=== PATIENT | female | born 2000 | race African-American/Black ===

== ENCOUNTER 2023-12-06 17:10 | Emergency (ER) | payer BC ==
--- OUTSIDE RECORDS SUMMARY | 2023-12-06 17:17 | XMS REPORT | Continuity of Care Document ---
Author Name Unknown Address [address] [facility] [place] [address] [facility] thconnect Address [address] [facility] [place] [address] Care Team Providers Care Vessel Traffic Officer Name Role Phone MAKENZIE BRUCE Primary Care Physician UnavailSTEFANO Light Attending Clinician Unavailable BRYNN BETH Attending Clinician Unavailable LAB47 Attending Clinician Unavailable ALBERT VELA Attending Clinician Unavailable HAMMAD SALGADO Attending Clinician Unavailable [email or web address]_S Attending Clinician Unavaila JUAN JOSE Giles Attending Clinician Unavailable SERGIO RAINEY Attending Clinician Unavailable UNASSIGNED, ED Attending Clinician Unavailable XU CORBETT Attending Clinician UnavailMELIZA Martinez Attending Clinician Unavailable GILDA BALDWIN Attending Clinician Unavailable MAKENZIE BRUCE Attending Clinician Unavailable Gilda Baldwin PA-C Attending Clinician [phone] Doctor Unassigned, [place] Attending Clinician U Rose Hager Attending Clinician [phone] ROSE GIBBS Attending Clin[facility], Eda-m Ultrasound Attending Clinician Unavaldemar bradley Mof Christie HUSTON Attending Clinician [phone] RAMIRO VIVAS Attending Clinician Unavailable [email or web address]_S Admitting Clinician UnavailMELIZA Guzmán Admitting Clinician Unavailable RAMIRO VIVAS Admitting Clinician Unavailable Payers Payer Name Policy Type Policy Number Effective Date Expirati on Date Source [facility] (ERS-BCBS CAPITATED) 9 [id number] 2023 00:00:00 [place] [employer] [place] [id number] [place] [id number] 2019 00:00:00 MANAGED MEDICAID GENERIC NON-CONTRACT [id number] 2020 00:00:00 2020 00:00:00 [facility] MEDICAID [id number] 2020 00:00:00 Problems Condition Name Condition Details Condition Category Status Onset Date Resolution Date Last Treatment Date Treating Clinician Comments Source Class 1 obesity due to excess calories without serious comorbidit y with body mass index (BMI) of 34.0 to 34.9 in adult Class 1 obesity due to excess calories without serious comorbidit y with body mass index (BMI) of 34.0 to 34.9 in adult Disease Active 11-15 00:00: 00 [facility] Cuellarold - Externa l Controlled substance agreement signed Controlled substance agreement signed Disease Active 11-15 00:00: 00 Conchis Cuellarold - Externa l Breast pain in female Breast pain in female Disease Active 10-29 00:00: 00 Con[facility] Cuellarold - Externa l Prediabete s Prediabete s Disease Active 10-29 00:00: 00 Conchis Cuellarold - Externa l Abdominal pain Problem Inactiv [facility] 38 weeks gestation of Problem Active [facility] growth restrictio n Problem Active [facility] Encounter for induction of labor Problem Active [facility] state Problem Active [facility] Allergic reaction Problem Inactiv e [facility] Health Status post vaginal delivery Problem Active [facility] Allergies, Adverse Reactions, Alerts Allergy Name Allergy Type Status Severity Reaction(s) Onset Date Inactive Date Treating Clinician Comments Source No Known Drug Allergie s Allergy to substanc e Active Unknown 2-17 00:00: [address] [facility] No Known Drug Allergie s Allergy to substanc e Active Unknown 1- 00:00: [address] [facility] No known drug Allergie s Miscella neous Allergy Active U Not Specified 07-09 08:28: 12 [facility] No known drug Allergie s Miscella neous Allergy Active U Not Specified 07-09 08:28: 12 [facility]) No known drug Allergie s Miscella neous Allergy Active U Not Specified 07-09 08:28: 12 [facility]) Denies latex allergy Miscella neous Allergy Active U Not Specified 07-09 08:03: 40 [facility]) Denies latex allergy Miscella neous Allergy Active U Not Specified 07-09 08:03: 40 [facility]) Denies latex allergy Miscella neous Allergy Active U Not Specified 07-09 08:03: 40 [facility]) Denies latex allergy Miscella neous Allergy Active U Not Specified 07-09 08:03: 40 [facility]) No Known Allergie s NA Active 07-09 08:02: 15 [facility] NO KNOWN ALLERGIE S Drug Class Active [facility] Social History Social Habit Start Date Stop Date Quantity Comments Source Sexual orientation Royce Lopez - External History of tobacco use [facility] Alcoholic beverage intake 2023-11-16 00:00:00 2023-11-16 00:00:00 Current drinker of alcohol (finding) Conchis Lopez - External History of Social function 2023-11-16 00:00:00 2023-11-16 00:00:00 Conchis Lopez - External Tobacco use and exposure 2023-10-30 00:00:00 2023-10-30 00:00:00 Smokeless tobacco non-user Conchis Lopez - External Alcohol Comment 2023-10-30 00:00:00 2023-10-30 00:00:00 soically Conchis Lopez - External Sex assigned at 2000 00:00:00 2000 00:00:00 Conchis Lopez - External Smoking Status Start Date Stop Date Source Never smoked tobacco Conchis Lopez - External Medications Ordered Medication Name Filled Medication Name Start Date Stop Date Current Medication? Ordering Clinician Indication Dosage Frequency Signature (SIG) Comments Components Source Nitrofurant oin Monohyd Macro 100 MG oral Capsule 11-26 00:00: 00 12-02 04:59 :00 Yes [id number] 100mg Take 1 capsule (100 mg total) by mouth 2 times daily for 5 days. Conchis gamez Sertraline HCl 25 MG oral Tablet 11-15 00:00: 00 Yes [id number] 25mg Take 1 tablet (25 mg total) by mouth daily. Conchis gamez Tirzepatide -Weight Management 2.5 MG/0.5ML subcutaneou s Solution Auto-inject or 11-15 00:00: 00 11-15 00:00 :00 No [id number] 2.5mg Inject 0.5 mL (2.5 mg total) into the skin once a week for 28 days. Conchis gamez Albuterol 90 Mcg/Act Hfa Inh (Proair Hfa Inh) 8.5 Gm HFA.AER.AD 02-16 20:14: 00 No 1 Every [address] [facility] Azithromyci n (Zithromax Z-Blake) 6 Tab/Pkg PKG 02-16 20:14: 00 No [address] [facility] Dexamethaso ne (Decadron) 6 Mg TAB 02-16 20:14: [address] No [address]mg Daily [facility] Ondansetron Hcl (Zofran Odt) 4 Mg TAB.RAPDIS 02-16 20:14: 00 No 4mg Every [address] [facility] Ibuprofen (Motrin) 800 Mg TAB 10-18 16:33: 00 06-19 00:00 :00 No 800mg Every 8 Hours as needed for Mild Pain(1-3)/ Duvall/Elev Temp [facility] Ibuprofen (Motrin) 800 Mg TAB 10-18 16:33: 00 06-19 00:00 :00 No 800mg Every 8 Hours as needed for Mild Pain(1-3)/ Duvall/Elev Temp [facility] Diphenhydra mine Hcl (Benadryl) 25 Mg TAB 2017-06 15:01: 08-31 00:00 :00 No 25mg Three Times A Day [facility] Methylpredn isolone (Medrol Dose-Pack) 21 Tab/Dspk TAB 2017-06 15:01: 08-31 00:00 :00 No [address] [facility] Diphenhydra mine Hcl (Benadryl) 25 Mg TAB 2017-06 15:01: 08-31 00:00 :00 No 25mg Three Times A Day [facility] Methylpredn isolone (Medrol Dose-Pack) 21 Tab/Dspk TAB 2017-06 15:01: 00 08-31 00:00 :00 No [address] [facility] Phenylephr/ Chlorphenir /Dextrometh (Eunice Grajeda) [facility] 2008-06 0 13:45: 00 08-31 00:00 :00 No 1[tsp_u s] Four Times Daily [facility] Phenylephr/ Chlorphenir /Dextrometh (Eunice Kiddq) [facility] 2008-06 13:45: 00 08-31 00:00 :00 No 1[tsp_u s] Four Times Daily [facility] Acetaminoph en/Codeine Phosphate (Tylenol #3) 1 Each TAB No 1 Every 4 Hours as needed for Pain [facility] Docusate Sodium (Colace) 50 Mg CAP No 100mg Twice A Day for Constipati on [facility] Ferrous Sulfate (Feosol) 325 Mg TAB No 325mg Twice A Day [facility] Vit,Calc76/ Iron/Folic (Prenatabs Rx Tablet) 1 Each TABLET No [address] [facility] Ferrous Sulfate (Feosol) 325 Mg TAB No 325mg Twice A Day [facility] Vit,Calc76/ Iron/Folic (Prenatabs Rx Tablet) 1 Each TABLET No [address] [facility] Vital Signs Vital Name Observation Time Observation Value Comments S rhina Systolic blood pressure 2023-11-16 18:55:00 100 mm[Hg] Conchis Seybo ld - External Diastolic blood pressure 2023-11-16 18:55:00 66 mm[Hg] Conchis Seybo ld - External Heart rate 2023-11-16 18:55:00 73 /min Kelse y Seybold - External Body temperature 2023-11-16 18:55:00 37.06 Darling Conchis Seybold - External Respiratory rate 2023-11-16 18:55:00 16 /min Conchis Seybold - External Body height 2023-11-16 18:55:00 157.5 cm Belkis ey Seybold - External Body weight 2023-11-16 18:55:00 86.637 kg Belkis ey Seybold - External BMI 2023-11-16 18:55:00 34.93 kg/m2 Belkis ey Seybold - External Oxygen saturation in Arterial blood by Pulse oximetry 2023-11-16 18:55:00 100 /min Conchis Seybo ld - External Systolic blood pressure 2023-10-30 19:13:00 102 mm[Hg] Conchis Seybo ld - External Diastolic blood pressure 2023-10-30 19:13:00 71 mm[Hg] Conchis Seybo ld - External Heart rate 2023-10-30 19:13:00 92 /min Reynoldse y Seybold - External Body temperature 2023-10-30 19:13:00 37.22 Darling Conchis Daiybold - External Respiratory rate 2023-10-30 19:13:00 18 /min Conchis Daiybold - External Body height 2023-10-30 19:13:00 157.5 cm Belkis ey Seybold - External Body weight 2023-10-30 19:13:00 84.823 kg Belkis ey Seybold - External BMI 2023-10-30 19:13:00 34.20 kg/m2 Belkis ey Seybold - External Oxygen saturation in Arterial blood by Pulse oximetry 2023-10-30 19:13:00 99 /min Conchis Daiybo ld - External BP Diastolic 2021-03-27 04:49:00 74 mm[Hg] [facility] BP Systolic 2021-03-27 04:49:00 124 mm[Hg] [facility] Heart Rate 2021-03-27 04:49:00 101 /min [facility] Respiratory rate 2021-03-27 04:49:00 20 /min [facility] Body Temperature 2021-03-27 04:49:00 98.8 [degF] [facility] BP Diastolic 2021-03-27 00:54:00 74 mm[Hg] [facility] BP Systolic 2021-03-27 00:54:00 124 mm[Hg] [facility] Heart Rate 2021-03-27 00:54:00 101 /min [facility] Respiratory rate 2021-03-27 00:54:00 20 /min [facility] Body Temperature 2021-03-27 00:54:00 98.8 [degF] [facility] BP Diastolic 2021-03-27 00:37:00 74 mm[Hg] [facility] BP Systolic 2021-03-27 00:37:00 124 mm[Hg] [facility] 2021-03-27 00:37:00 101 /min [facility] Respiratory rate 2021-03-27 00:37:00 20 /min [facility] Body Temperature 2021-03-27 00:37:00 98.8 [degF] [facility] BP Diastolic 2021-02-16 20:31:00 60 mm[Hg] [facility] BP Systolic 2021-02-16 20:31:00 114 mm[Hg] [facility] Heart [facility] 2021-02-16 20:31:00 122 /min [facility] Health Respiratory rate 2021-02-16 20:31:00 24 /min [facility] Body Temperature 2021-02-16 20:31:00 102.0 [degF] [facility] BP Diastolic 2021-02-16 19:38:00 60 mm[Hg] [facility] BP Systolic 2021-02-16 19:38:00 114 mm[Hg] [facility] Heart [facility] 2021-02-16 19:38:00 122 /min [facility] Respiratory rate 2021-02-16 19:38:00 24 /min [facility] Body Temperature 2021-02-16 19:38:00 102.0 [degF] [facility] BP Diastolic 2020-08-07 15:07:00 82 mm[Hg] [facility] BP Systolic 2020-08-07 15:07:00 117 mm[Hg] [facility] Heart Rate 2020-08-07 15:07:00 83 /min [facility] Respiratory rate 2020-08-07 15:07:00 16 /min [facility] Body Temperature 2020-08-07 15:07:00 98.6 [degF] [facility] BP Diastolic 2020-08-07 08:12:00 77 mm[Hg] [facility] BP Systolic 2020-08-07 08:12:00 120 mm[Hg] [facility] 2020-08-07 08:12:00 71 /min [facility] Respiratory rate 2020-08-07 08:12:00 16 /min [facility] Body Temperature 2020-08-07 08:12:00 97.3 [degF] [facility] BP Diastolic 2020-08-07 04:00:00 88 mm[Hg] [facility] BP Systolic 2020-08-07 04:00:00 142 mm[Hg] [facility] Heart [facility] 2020-08-07 04:00:00 78 /min [facility] Respiratory rate 2020-08-07 04:00:00 16 /min [facility] Body Temperature 2020-08-07 04:00:00 97.8 [degF] [facility] BP Diastolic 2020-08-07 00:23:00 84 mm[Hg] [facility] BP Systolic 2020-08-07 00:23:00 135 mm[Hg] [facility] Heart [facility] 2020-08-07 00:23:00 64 /min [facility] Respiratory rate 2020-08-07 00:23:00 16 /min [facility] Body Temperature 2020-08-07 00:23:00 97.9 [degF] [facility] BP Diastolic 2020-08-06 19:45:00 84 mm[Hg] [facility] BP Systolic 2020-08-06 19:45:00 127 mm[Hg] [facility] Heart [facility] 2020-08-06 19:45:00 83 /min [facility] Respiratory rate 2020-08-06 19:45:00 16 /min [facility] Body Temperature 2020-08-06 19:45:00 98.2 [degF] [facility] BP Diastolic 2020-08-06 12:00:00 76 mm[Hg] [facility] BP Systolic 2020-08-06 12:00:00 113 mm[Hg] [facility] Heart Rate 2020-08-06 12:00:00 89 /min [facility] Respiratory rate 2020-08-06 12:00:00 18 /min [facility] Body Temperature 2020-08-06 12:00:00 98.6 [degF] [facility] BP Diastolic 2020-08-06 08:00:00 73 mm[Hg] [facility] BP Systolic 2020-08-06 08:00:00 116 mm[Hg] [facility] 2020-08-06 08:00:00 85 /min [facility] Respiratory rate 2020-08-06 08:00:00 18 /min [facility] Body Temperature 2020-08-06 08:00:00 98.4 [degF] [facility] BP Diastolic 2020-08-06 03:20:00 69 mm[Hg] [facility] BP Systolic 2020-08-06 03:20:00 110 mm[Hg] [facility] Heart [facility] 2020-08-06 03:20:00 89 /min [facility] Respiratory rate 2020-08-06 03:20:00 20 /min [facility] Body Temperature 2020-08-06 03:20:00 100.0 [degF] [facility] Body Temperature 2020-08-06 01:08:00 102.2 [degF] [facility] Body Temperature 2020-08-05 23:15:00 98.7 [degF] [facility] BP Diastolic 2020-08-05 23:00:00 80 mm[Hg] [facility] BP Systolic 2020-08-05 23:00:00 143 mm[Hg] [facility] Heart [facility] 2020-08-05 23:00:00 90 /min [facility] Respiratory rate 2020-08-05 23:00:00 20 /min [facility] Body Temperature 2020-08-05 21:45:00 97.8 [degF] [facility] Respiratory rate 2020-08-05 21:30:00 18 /min [facility] BP Diastolic 2020-08-05 19:10:00 68 mm[Hg] [facility] BP Systolic 2020-08-05 19:10:00 122 mm[Hg] [facility] Heart Rate 2020-08-05 19:10:00 90 /min [facility] Respiratory rate 2020-08-05 19:10:00 20 /min [facility] Body Temperature 2020-08-05 19:10:00 98.1 [degF] [facility] BP Diastolic 2020-08-05 17:54:00 73 mm[Hg] [facility] BP Systolic 2020-08-05 17:54:00 126 mm[Hg] [facility] Heart Rate 2020-08-05 17:54:00 90 /min [facility] Respiratory rate 2020-08-05 17:54:00 20 /min [facility] Body Temperature 2020-08-05 17:54:00 98.7 [degF] [facility] BP Diastolic 2020-08-05 12:05:00 61 mm[Hg] [facility] BP Systolic 2020-08-05 12:05:00 117 mm[Hg] [facility] 2020-08-05 12:05:00 87 /min [facility] Respiratory rate 2020-08-05 12:05:00 20 /min [facility] Body Temperature 2020-08-05 12:05:00 98.6 [degF] [facility] BP Diastolic 2020-07-12 21:33:00 62 mm[Hg] [facility] BP Systolic 2020-07-12 21:33:00 129 mm[Hg] [facility] Heart [facility] 2020-07-12 21:33:00 89 /min [facility] Respiratory rate 2020-07-12 21:33:00 18 /min [facility] Body Temperature 2020-07-12 21:33:00 98.9 [degF] [facility] BP Diastolic 2020-06-19 18:00:00 59 mm[Hg] [facility] BP Systolic 2020-06-19 18:00:00 108 mm[Hg] [facility] Heart Rate 2020-06-19 18:00:00 94 /min [facility] Respiratory rate 2020-06-19 18:00:00 20 /min [facility] Body Temperature 2020-06-19 18:00:00 98.1 [degF] [facility] Procedures Procedure Date / Time Performed Performing Clinicia n Source X-ray of chest, two views 2021-03-27 00:00:00 [facility] Ultrasound, abdomen, limited 2021-03-27 00:00:00 [facility] non-stress test 2020-08-05 00:00:00 [facility] NON-STRESS TEST 2020-07-12 00:00:00 [facility] OFFICE O/P EST LOW 20-29 MIN 2020-07-12 00:00:00 [facility] non-stress test 2020-07-12 00:00:00 [facility] outpt clinic visit 2020-07-12 00:00:00 [facility] non-stress test 2020-06-19 00:00:00 [facility] outpt clinic visit 2020-06-19 00:00:00 [facility] Ther/proph/diag inj SC/IM 2020-06-19 00:00:00 [facility] Encounters Start Date/Time End Date/Time Encounter Type Admission Type Attending Clinicians Care Facility Care Department Encounter ID Source 2023-12-18 10:00:00 2023-12-18 10:00:00 Outpatient STEFANO HECTOR [id number] [facility] 2023-12-14 14:00:00 2023-12-14 14:00:00 Outpatient BRYNN BETH [id number] [facility] 2023-11-28 08:20:00 2023-11-28 08:20:00 Outpatient LAB47 CONCHIS CARTER [id number] [facility] 2023-11-27 13:30:00 2023-11-27 13:30:00 Outpatient ALBERT VELA [id number] [facility] 2023-11-26 13:30:00 2023-11-26 13:30:00 Outpatient LAB47 CONCHIS CARTER [id number] [facility] 2023-11-16 14:45:00 2023-11-16 14:45:00 Outpatient LAB47 CONCHIS CARTER [id number] [facility] 2023-11-16 14:00:00 2023-11-16 14:00:00 Outpatient BRYNN BETH [id number] [facility] 2023-11-16 00:00:00 2023-11-16 00:00:00 Outpatient HAMMAD SALGADO [id number] [facility] 2023-11-13 10:50:00 2023-11-13 10:50:00 Outpatient LABJovita CARTER [id number] [facility] 2023-10-30 13:45:00 2023-10-30 13:45:00 Outpatient HAMMAD SALGADO [id number] [facility] 2023-09-17 00:00:00 2023-09-17 00:00:00 Outpatient GC_GCBZW_Ka diyala_S [facility] [id number] [facility] 2022-09-25 15:42:00 2022-09-25 16:00:00 Emergency ER JUAN JOSE [facility] [id number] [facility] 2022-05-27 08:04:00 2022-05-27 09:17:00 Emergency ER REDDSERGIO [id number] [facility] 2022-05-27 08:04:00 2022-05-27 09:17:00 Emergency ER SERGIO RAINEY [facility] [id number] [facility] 2021-03-27 00:38:00 2021-03-27 00:38:00 Departed Emergency Room ER UNASSIGNED, ED CIRA DENIS [id number] [facility] 2021-02-16 19:32:00 2021-02-16 20:31:00 Departed Emergency Room XU CORBETT [id number] [facility] 2020-08-05 12:14:00 2020-08-07 17:29:00 Discharged Inpatient MELIZA MALIK OB [id number] [facility] 2020-07-19 15:00:00 2020-07-19 15:00:00 Outpatient GILDA MALAVE [facility] [id number] [facility] 2020-07-12 21:11:00 2020-07-12 21:11:00 Departed Clinic MAKENZIE VALLES [id number] [facility] 2020-07-09 00:00:00 2020-07-09 00:00:00 Telephone Denny Gilda [facility] MATERNAL & CHILD [facility] .[id number] 2020-07-08 09:00:00 2020-07-08 09:00:00 Outpatient GILDA MALAVE [facility] [id number] [facility] 2020-06-28 11:00:00 2020-06-28 11:00:00 Outpatient GILDA MALAVE [facility] [id number] [facility] 2020-06-19 17:57:00 2020-06-19 17:57:00 Departed Clinic MAKENZIE VALLES [id number] [facility] 2020-06-04 00:00:00 2020-06-04 00:00:00 Orders Only Doctor Unassigned, [place] [facility] [id number] 2020-06-03 15:06:45 2020-06-03 17:12:56 Routine Visit Rose Gibbs [facility] MATERNAL & CHILD [facility] 1..840.114 [id number] [id number] 2020-06-03 15:15:00 2020-06-03 15:15:00 Outpatient ROSE EM [facility] [id number] [facility] 2020-06-01 10:45:00 2020-06-01 10:45:00 Outpatient Juan R BALDWIN GILDA [facility] [id number] [facility] 2020-05-27 09:41:45 2020-05-27 10:41:45 [facility] Visit 1, Eda-Mfm Ultrasound [facility] & CHILD [facility] [id number] 2020-05-27 09:45:00 2020-05-27 09:45:00 Outpatient P [facility] [id number] [facility] 2020-05-27 00:00:00 2020-05-27 00:00:00 Case Management Denny Gilda [facility] [id number] 2020-05-18 10:25:57 2020-05-18 12:30:49 Routine Visit Christie Farrar [facility] [id number] 2020-05-18 10:30:00 2020-05-18 10:30:00 Outpatient GILDA MALAVE [facility] [id number] [facility] 2020-04-30 14:00:00 2020-04-30 14:00:00 Outpatient R [facility] [id number] [facility] 2019-07-09 08:01:00 2019-07-09 08:01:00 Emergency RAMIRO VIVAS PANCHO DICKENS [id number] [facility] Results Test Description Test Time Test Comments Results Result Co mments Source [facility] automated count (number/volume)2021-03-27 01:10:00* Test Item Value Reference Range Interpretation Comme nts Red Blood Count (test code = 789-8) 4.30 3.8-5.1 [facility] (mass/volume)2021-03-27 01:10:00* Test Item Value Reference Range Interpretation Comme nts Hemoglobin (test code = 718-7) 10.6 12.0-15.2 [facility] hematocrit (volume fraction)2021-03-27 01:10:00* Test Item Value Reference Range Interpretation Comme nts Hematocrit (test code = 4544-3) 35.3 34.0-45.5 [facility] erythrocyte mean corpuscular volume (MCV) measurement 2021-03-27 01:10:00* Test Item Value Reference Range Interpretation Comme nts Mean Corpuscular Volume (scott t code = 787-2) 82 80-94 [facility] mean corpuscular hemoglobin (mass per erythrocyte)2021-03-27 01:10:00* Test Item Value Reference Range Interpretation Comme nts Mean Corpuscular Hemoglobin (test code = 785-6) 24.7 27.0-33.0 [facility] mean corpuscular hemoglobin concentration measurement (mass/volume)2021-03-27 01:10:00* Test Item Value Reference Range Interpretation Comme nts Mean Corpuscular Hemoglobin Concent (test code = 786-4) 30.0 33.0-37.0 [facility] erythrocyte distribution width [id number] 01:10:00 * Test Item Value Reference Range Interpretation Comme nts Red Cell Distribution Width (test code = 788-0) 15.9 10.7-14.5 [facility] platelet count (count/volume)2021-03-27 01:10:00 * Test Item Value Reference Range Interpretation Comme nts Platelet Count (test code = 777-3) 386 150-450 [facility] platelet mean volume [id number] 01:10:00* Test Item Value Reference Range Interpretation Comme nts Mean Platelet Volume (test c ode = 37631-4) 9.7 5.7-10.7 [facility] HealthAutomated blood neutrophil count as percentage of total ldbuhipvqf4320-50-69 01:10:00* Test Item Value Reference Range Interpretation Comme nts Neutrophils (%) (Auto) (test code = 770-8) 62 47-75 [facility] HealthAutomated blood immature granulocyte count as percentage of total uvwgjysmep5586-30-69 01:10:00* Test Item Value Reference Range Interpretation Comme nts Immature Granulocyte % (Auto ) (test code = 29523-2) 0 0-0 [facility] HealthAutomated blood lymphocyte count as percentage of total imlydfbnbk7028-67-76 01:10:00* Test Item Value Reference Range Interpretation Comme nts Lymphocytes (%) (Auto) (test code = 736-9) 30 25-44 [facility] HealthAutomated blood monocyte count as percentage of total leukocytes 2021-03-27 01:10:00* Test Item Value Reference Range Interpretation Comme nts Monocytes (%) (Auto) (test c ode = 5905-5) 6 3-10 [facility] HealthAutomated blood eosinophil count as percentage of total mqsprbkljw5073-06-64 01:10:00* Test Item Value Reference Range Interpretation Comme nts Eosinophils (%) (Auto) (test code = 713-8) 2 0-7 [facility] HealthAutomated blood basophil count as percentage of total leukocytes 2021-03-27 01:10:00* Test Item Value Reference Range Interpretation Comme nts Basophils (%) (Auto) (test c ode = 706-2) 0 0-1 [facility] HealthAutomated blood nucleated erythrocyte count as percentage of total xntgkrplyx8038-42-94 01:10:00* Test Item Value Reference Range Interpretation Comme nts Nucleated Red Blood Cells % (test code = 35334-0) 0.0 0-0.2 [facility] HealthAutomated blood neutrophil count (number/volume)2021-03-27 01:10:00* Test Item Value Reference Range Interpretation Comme nts Neutrophils # (Auto) (test c ode = 751-8) 6.2 1.3-6.7 [facility] HealthAutomated blood immature granulocyte count as percentage of total vjdsazxeuu9520-18-74 01:10:00* Test Item Value Reference Range Interpretation Comme nts Immature Granulocyte # (Auto ) (test code = 24659-9) 0.0 0.0-0.0 [facility] HealthAutomated blood lymphocyte count (number/volume)2021-03-27 01:10:00* Test Item Value Reference Range Interpretation Comme nts Lymphocytes # (Auto) (test c ode = 731-0) 3.0 1.4-4.1 [facility] HealthBlood monocytes automated count (number/volume)2021-03-27 01:10:00* Test Item Value Reference Range Interpretation Comme nts Monocytes # (Auto) (test code = 742-7) 0.6 0-1.3 [facility] HealthAutomated blood eosinophil myiko3591-87-42 01:10:00* Test Item Value Reference Range Interpretation Comme nts Eosinophils # (Auto) (test c ode = 711-2) 0.2 0-0.8 [facility] HealthAutomated blood basophil count (number/volume)2021-03-27 01:10:00 * Test Item Value Reference Range Interpretation Comme nts Basophils # (Auto) (test code = 704-7) 0.0 0-0.1 [facility] HealthAutomated blood nucleated erythrocyte count (count/volume) 2021-03-27 01:10:00* Test Item Value Reference Range Interpretation Comme nts Nucleated Red Blood Cells # (test code = 771-6) 0.00 0-0.01 [facility] comment [id number] 01:10:00* Test Item Value Reference Range Interpretation Comme nts Manual Differential (test co de = 8265-1) Not Ind [facility] HealthSodium UdkVe-fRyo5439-48-10 01:10:00* Test Item Value Reference Range Interpretation Comme nts Sodium Level (test code = 2951-2) 139 136-145 [facility] HealthSerum or plasma potassium measurement (moles/volume)2021-03-27 01:10:00* Test Item Value Reference Range Interpretation Comme nts Potassium Level (test code = 2823-3) 3.9 3.5-5.1 [facility] HealthSerum or plasma chloride measurement (moles/volume)2021-03-27 01:10:00* Test Item Value Reference Range Interpretation Comme nts Chloride Level (test code = 2075-0) 105 98-107 [facility] HealthSerum or plasma total carbon dioxide measurement (moles/volume) 2021-03-27 01:10:00* Test Item Value Reference Range Interpretation Comme nts Carbon Dioxide Level (test c ode = 2028-02) 24 22-29 [facility] HealthSerum or plasma anion gap determination (moles/volume)2021-03-27 01:10:00* Test Item Value Reference Range Interpretation Comme nts Anion Gap (test code = 89834-8) 14 8-18 [facility] HealthSerum or plasma urea nitrogen measurement (mass/volume)2021-03-27 01:10:00* Test Item Value Reference Range Interpretation Comme nts Blood Urea Nitrogen (test co de = 3094-0) 13 7-19 [facility] HealthSerum or plasma creatinine measurement (mass/volume)2021-03-27 01:10:00* Test Item Value Reference Range Interpretation Comme nts Creatinine (test code = 2160-0) 0.7 0.6-1.1 [facility] HealthGFR/BSA.pred SerPl QJGV-HvTGko0846-08-10 01:10:00* Test Item Value Reference Range Interpretation Comme nts Estimat Glomerular Filtratio n Rate (test code = 67265-9) 111 90-142 [facility] HealthSerum or plasma glucose measurement (mass/volume)2021-03-27 01:10:00* Test Item Value Reference Range Interpretation Comme nts Glucose Level (test code = 2345-7) 106 60-100 [facility] HealthSerum or plasma calcium measurement (mass/volume)2021-03-27 01:10:00* Test Item Value Reference Range Interpretation Comme nts Calcium Level (test code = 53755-2) 10.2 8.4-10.2 [facility] HealthSerum or plasma total bilirubin measurement (mass/volume) 2021-03-27 01:10:00* Test Item Value Reference Range Interpretation Comme nts Total Bilirubin (test code = 1975-2) 0.2 0.2-1.2 [facility] HealthSerum or plasma aspartate aminotransferase measurement (enzymatic activity/volume)2021-03-27 01:10:00* Test Item Value Reference Range Interpretation Comme nts Aspartate Amino Transf (AST/ SGOT) (test code = 1920-8) 13 5-34 [facility] HealthSerum or plasma alanine aminotransferase measurement (enzymatic activity/volume)2021-03-27 01:10:00* Test Item Value Reference Range Interpretation Comme nts Alanine Aminotransferase (AL T/SGPT) (test code = 1742-6) 11 0-55 [facility] HealthSerum or plasma protein measurement (mass/volume)2021-03-27 01:10:00* Test Item Value Reference Range Interpretation Comme nts Total Protein (test code = 2885-2) 7.6 6.4-8.3 [facility] HealthSerum or plasma albumin measurement (mass/volume)2021-03-27 01:10:00* Test Item Value Reference Range Interpretation Comme nts Albumin (test code = 1751-7) 4.0 3.5-5.0 [facility] HealthSerum or plasma alkaline phosphatase measurement (enzymatic activity/volume)2021-03-27 01:10:00* Test Item Value Reference Range Interpretation Comme [facility] Alkaline Phosphatase (test c ode = 6768-6) 91 40-150 [facility] HealthSerum or plasma lipase measurement (enzymatic activity/volume) 2021-03-27 01:10:00* Test Item Value Reference Range Interpretation Comme nts Lipase (test code = 3040-3) 22 8-78 [facility] HealthSerum or plasma beta choriogonadotropin ( test) oeflabwju2097-08-05 01:10:00* Test Item Value Reference Range Interpretation Comme [facility] Serum Test, Qualit ative (test code = 2110-5) Negative Negative [facility] HealthAutomated blood leukocyte count (number/volume)2020-08-07 06:11:00* Test Item Value Reference Range Interpretation Comme [facility] White Blood Count (test code = 6690-2) 9.0 4.5-11.5 [facility] count (number/volume)2020-08-07 06:11:00* Test Item Value Reference Range Interpretation Comme nts Red Blood Count (test code = 789-8) 4.64 3.8-5.1 [facility] HealthBlood hemoglobin measurement (mass/volume)2020-08-07 06:11:00* Test Item Value Reference Range Interpretation Comme [facility] Hemoglobin (test code = 718-7) 11.5 12.0-15.2 [facility] HealthAutomated blood hematocrit (volume fraction)2020-08-07 06:11:00* Test Item Value Reference Range Interpretation Comme nts Hematocrit (test code = 4544-3) 36.8 34.0-45.5 [facility]Automated erythrocyte mean corpuscular volume (MCV) measurement 2020-08-07 06:11:00* Test Item Value Reference Range Interpretation Comme nts Mean Corpuscular Volume (scott t code = 787-2) 79 80-94 [facility]Automated erythrocyte mean corpuscular hemoglobin (mass per erythrocyte)2020-08-07 06:11:00* Test Item Value Reference Range Interpretation Comme nts Mean Corpuscular Hemoglobin (test code = 785-6) 24.8 27.0-33.0 [facility]Automated erythrocyte mean corpuscular hemoglobin concentration measurement (mass/volume)2020-08-07 06:11:00* Test Item Value Reference Range Interpretation Comme nts Mean Corpuscular Hemoglobin Concent (test code = 786-4) 31.3 33.0-37.0 [facility] HealthAutomated erythrocyte distribution width evbbo3165-90-85 06:11:00 * Test Item Value Reference Range Interpretation Comme nts Red Cell Distribution Width (test code = 788-0) 15.8 10.7-14.5 [facility]Automated blood platelet count (count/volume)2020-08-07 06:11:00 * Test Item Value Reference Range Interpretation Comme nts Platelet Count (test code = 777-3) 174 150-450 [facility]Automated blood platelet mean volume mgnkjrmeoaw4116-91-98 06:11:00* Test Item Value Reference Range Interpretation Comme nts Mean Platelet Volume (test c ode = 61294-4) 9.7 5.7-10.7 [facility]Automated blood neutrophil count as percentage of total sxslewgdvw0385-87-78 06:11:00* Test Item Value Reference Range Interpretation Comme nts Neutrophils (%) (Auto) (test code = 770-8) 64 47-75 [facility]Automated blood immature granulocyte count as percentage of total suntuotnfq9743-51-01 06:11:00* Test Item Value Reference Range Interpretation Comme nts Immature Granulocyte % (Auto ) (test code = 31895-9) 1 0-0 [facility]Automated blood lymphocyte count as percentage of total gmnhkawllq3324-90-51 06:11:00* Test Item Value Reference Range Interpretation Comme nts Lymphocytes (%) (Auto) (test code = 736-9) 28 25-44 [facility]Automated blood monocyte count as percentage of total leukocytes 2020-08-07 06:11:00* Test Item Value Reference Range Interpretation Comme nts Monocytes (%) (Auto) (test c ode = 5905-5) 6 3-10 [facility]Automated blood eosinophil count as percentage of total bquwgxnsni8384-64-91 06:11:00* Test Item Value Reference Range Interpretation Comme nts Eosinophils (%) (Auto) (test code = 713-8) 1 0-7 [facility]Automated blood basophil count as percentage of total leukocytes 2020-08-07 06:11:00* Test Item Value Reference Range Interpretation Comme nts Basophils (%) (Auto) (test c ode = 706-2) 0 0-1 [facility]Automated blood nucleated erythrocyte count as percentage of total xlpnohckzs4364-61-43 06:11:00* Test Item Value Reference Range Interpretation Comme nts Nucleated Red Blood Cells % (test code = 00670-2) 0.0 0-0.2 [facility]Automated blood neutrophil count (number/volume)2020-08-07 06:11:00* Test Item Value Reference Range Interpretation Comme nts Neutrophils # (Auto) (test c ode = 751-8) 5.7 1.3-6.7 [facility]Automated blood immature granulocyte count as percentage of total wsoxefktis1146-80-93 06:11:00* Test Item Value Reference Range Interpretation Comme nts Immature Granulocyte # (Auto ) (test code = 45994-8) 0.1 0.0-0.0 [facility]Automated blood lymphocyte count (number/volume)2020-08-07 06:11:00* Test Item Value Reference Range Interpretation Comme nts Lymphocytes # (Auto) (test c ode = 731-0) 2.5 1.4-4.1 [facility] HealthBlood monocytes automated count (number/volume)2020-08-07 06:11:00* Test Item Value Reference Range Interpretation Comme nts Monocytes # (Auto) (test code = 742-7) 0.5 0-1.3 [facility] eosinophil ywusd7621-72-63 06:11:00* Test Item Value Reference Range Interpretation Comme nts Eosinophils # (Auto) (test c ode = 711-2) 0.1 0-0.8 [facility]Autom[facility] basophil count (number/volume)2020-08-07 06:11:00 * Test Item Value Reference Range Interpretation Comme nts Basophils # (Auto) (test code = 704-7) 0.0 0-0.1 [facility] HospitalAutom[facility] blood nucleated erythrocyte count (count/volume) 2020-08-07 06:11:00* Test Item Value Reference Range Interpretation Comme nts Nucleated Red Blood Cells # (test code = 771-6) 0.00 0-0.01 [facility]Service comment [id number] 06:11:00* Test Item Value Reference Range Interpretation Comme nts Manual Differential (test co de = 8265-1) Not Ind [facility] hepatitis B virus surface antigen jtrrcmdqo0513-90-99 12:45:00* Test Item Value Reference Range Interpretation Comme [facility] Hepatitis B Surface Antigen (test code = 5195-3) Negative Negative [facility] reagin antibody detection by EWC8989-59-96 12:45:00* Test Item Value Reference Range Interpretation Comme nts Rapid Plasma Reagin (test co de = 35590-0) Non-Reactive NonReactive [facility] HospitalSpecimen source [id number] 12:45:00* Test Item Value Reference Range Interpretation Comme nts SARS CoV-2 Rapid Source (scott t code = 59135-9) Nasal swab [facility]-CoV+SARS-CoV-2(COVID-19)Ag[Presence]2020-08-04 12:45:00* Test Item Value Reference Range Interpretation Comme nts SARS-CoV-2 Antigen (Rapid) ( test code = 24666-7) Negative Negative [facility] patient employed in a healthcare lctqhli5234-84-25 12:45:00* Test Item Value Reference Range Interpretation Comme nts N/A (test code = 78591-0) Unknown [facility]Patient has symptoms for condition of hdsswhtt7887-23-85 12:45:00 * Test Item Value Reference Range Interpretation Comme nts N/A (test code = 35533-9) Unknown [facility] HealthPt hospitalized bc bwsp7108-14-74 12:45:00* Test Item Value Reference Range Interpretation Comme nts N/A (test code = 82500-4) Unknown [facility] HealthPregnancy ztspev9828-92-58 12:45:00* Test Item Value Reference Range Interpretation Comme nts N/A (test code = 07717-0) [facility] HealthPatient resides in congregate care rfzebpp7292-02-36 12:45:00* Test Item Value Reference Range Interpretation Comme nts N/A (test code = 88051-8) Unknown [facility] HospitalSer rubella virus IgG antibody assay (units/volume)2020-08-04 12:45:00* Test Item Value Reference Range Interpretation Comme nts Rubella IgG Antibody (test c ode = 8014-3) 19.5 [facility] HospitalUrinalysis specimen collection vsholh7949-06-53 18:25:00* Test Item Value Reference Range Interpretation Comme nts Urine Source (test code = 37912-1) URINE [facility] HealthColor of Urine by Edpc7920-60-35 18:25:00* Test Item Value Reference Range Interpretation Comme nts Urine Color (test code = 31754-6) Yellow Yel-Amarilys * [facility] HealthUrine clarity dutfjphvumrls5641-92-35 18:25:00* Test Item Value Reference Range Interpretation Comme nts Urine Appearance (test code = 87483-2) Light Turbid Clear * [facility] HealthUrine pH measurement by automated test vwkaw8466-03-23 18:25:00* Test Item Value Reference Range Interpretation Comme nts Urine pH (test code = 31761-5) 6.5 5.0-8.0 [facility] HealthSpecific gravity of Urine by Automated test gjjyi1689-08-69 18:25:00* Test Item Value Reference Range Interpretation Comme nts Urine Specific [place] (test code = 76107-3) 1.026 1.005-1.030 [facility] HealthUrine protein measurement by automated test strip (mass/volume) 2020-06-19 18:25:00* Test Item Value Reference Range Interpretation Comme nts Urine Protein (test code = 46427-5) 20 Negative * [facility] HealthUrine glucose measurement by automated test strip (mass/volume) 2020-06-19 18:25:00* Test Item Value Reference Range Interpretation Comme nts Urine Glucose (UA) (test cod e = 00615-8) Negative Negative * [facility] HealthUrine ketones measurement by automated test strip (mass/volume) 2020-06-19 18:25:00* Test Item Value Reference Range Interpretation Comme nts Urine Ketones (test code = 34483-5) Negative Negative * [facility] HealthUrine erythrocytes count by automated test strip (number/volume) 2020-06-19 18:25:00* Test Item Value Reference Range Interpretation Comme nts Urine Occult Blood (test cod e = 43930-2) Negative Negative * [facility] HealthUrine nitrite detection by automated test fcrre8637-55-20 18:25:00* Test Item Value Reference Range Interpretation Comme nts Urine Nitrite (test code = 67968-2) Negative Negative [facility] HealthUrine total bilirubin measurement by automated test strip (mass/volume)2020-06-19 18:25:00* Test Item Value Reference Range Interpretation Comme nts Urine Bilirubin (test code = 15088-4) Negative Negative [facility] HealthUrine urobilinogen measurement by automated test strip (mass/volume)2020-06-19 18:25:00* Test Item Value Reference Range Interpretation Comme nts Urine Urobilinogen (test cod e = 13291-0) Negative 0.0-1.0 [facility] HealthUrine leukocytes count by automated test strip (number/volume) 2020-06-19 18:25:00* Test Item Value Reference Range Interpretation Comme nts Urine Leukocyte Esterase (te st code = 35242-4) Negative Negative [facility] HealthUrine sediment erythrocyte count by microscopy (number/high power field)2020-06-19 18:25:00* Test Item Value Reference Range Interpretation Comme nts Urine RBC (test code = 72614-7) 3-10 0-2 [facility] HealthUrine sediment leukocyte count by microscopy (number/high power field)2020-06-19 18:25:00* Test Item Value Reference Range Interpretation Comme nts Urine WBC (test code = 5821-4) 21-40 0-5 [facility] HealthUrine sediment epithelial cell count by microscopy (number/high power field)2020-06-19 18:25:00* Test Item Value Reference Range Interpretation Comme nts Urine Epithelial Cells (test code = 5787-7) None Seen Few [facility] HealthUrine sediment crystal count by microscopy (number/high power field)2020-06-19 18:25:00* Test Item Value Reference Range Interpretation Comme nts Urine Crystals (test code = 96388-6) None Seen None * [facility] HealthUrine sediment bacteria count by microscopy (number/high power field)2020-06-19 18:25:00* Test Item Value Reference Range Interpretation Comme nts Urine Bacteria (test code = 5769-5) Packed None [facility] HealthUrine sediment casts count by microscopy (number/low power field) 2020-06-19 18:25:00* Test Item Value Reference Range Interpretation Comme nts Urine Casts (test code = 9842-6) Present None * [facility] HealthUrine sediment hyaline cast count by microscopy (number/low power field)2020-06-19 18:25:00* Test Item Value Reference Range Interpretation Comme nts Urine Hyaline Casts (test co de = 5796-8) >20 0-1 [facility] HealthYeast detection in urine sediment by light urfqpbmflj9877-10-68 18:25:00* Test Item Value Reference Range Interpretation Comme nts Urine Yeast (test code = 21056-3) None Seen None [facility] HealthService comment 18:25:00* Test Item Value Reference Range Interpretation Comme nts Urinalysis Comment (test code = 8262-8) * See_Comment [Automated messa ge] The system which generated this result transmitted reference range: *. The reference range was not used to interpret this result as normal/abnormal. [facility] comment 18:25:00* Test Item Value Reference Range Interpretation Comme nts Urine Culture Indicated (scott t code = 8264-4) To follow [facility] SCREEN FOR HIV 13:48:00* Test Item Value Reference Range Interpretation Comme nts HIV 1/2 AB (test code = SCRN HIV) NEGATIVE NEGATIVE This test is us ed for SCREENING purposes only. All reactive results are prelimenary and confirmation results will follow. [id number] 10:04:00* Test Item Value Reference Range Interpretation Comme nts GLUCOSE (test code = URGLU) NEGATIVE MG/DL NEG-100 BILIRUBN (test code = URBILI) NEGATIVE NEGATIVE KETONE (test code = URKET) NEGATIVE MG/DL NEGATIVE BLOOD (test code = URBLD) MODERATE UR PH (test code = URPH) 5.5 5.0-7.5 PROTEIN (test code = URPRO) NEGATIVE MG/DL NEGATIVE NITRITES (test code = URNIT) NEGATIVE NEGATIVE UROBILINGEN (test code = URURO) 0.2 EU/DL 0.2-1.0 LEUKOCYT (test code = URLEU) NEGATIVE NEGATIVE UA COLOR (test code = UA COLOR) YELLOW YELLOW CLARITY (test code = CLARITY) CLEAR CLEAR SP GRAV (test code = URSPGRAV) 1.019 1.000-1.025 UAMICRO (test code = UAMICRO) YES WBC (test code = URWBC) 3 /HPF 0-5 RBC (test code = URRBC) 9 /HPF 0-2 H CASTS (test code = CAST) 2 /LPF 0-3 UR EPI (test code = EPI) 22 /LPF BACTERIA (test code = BACTERIA) NEGATIVE NONE B-HCG, [id number] 09:53:00* Test Item Value Reference Range Interpretation Comme nts HCG (test code = HCG) 7 MIU/ML A value of less than or equal to </= 4.83 mIU/ml is considered NEGATIVE. A value between 4.84 mIU/ml and 24.99 mIU/ml is considered INDETERMINATE and should be repeated in 48 hours if necessary. A value of 25.0 mIU/ml or greater is considered POSITIVE. Updated: 10/23/2009 ABO/[id number] 09:47:00* Test Item Value Reference Range Interpretation Comme nts BLOOD TYPE (test code = TYPE) O Rh Positive Comment for Females Rhogam may be indicated for patient depending baby's Rh status. [id number] 09:30:00* Test Item Value Reference Range Interpretation Comme nts SODIUM (test code = NA) 138 MMOL/L 137-145 K+ (test code = KSERUM) 4.1 MMOL/L 3.5-5.1 PLEASE NOTE NEW REFERENCE RANGE(S) IN EFFECT EFFECTIVE 01/20/2010 - NEW ANALYZER ([employer] 5600) CHLORIDE (test code = CL) 103 MMOL/L 98-107 CO2 (test code = CO2) 25 MMOL/L 22-30 BUN (test code = BUN) 10 MG/DL 7-17 CREA (test code = CREA) 0.6 MG/DL 0.7-1.2 L GLUCOSE (test code = GLUCOSE) 107 MG/DL 70-99 H Fasting glucos e normal <100 MG/DL- [employer] recommendation CALCIUM (test code = CABLOOD) 9.3 MG/DL 8.4-10.2 TOTPROT (test code = TOTPROT) 6.8 G/DL 6.3-8.2 ALBUMIN (test code = ALBSERUM) 4.0 G/DL 3.5-5.0 BILITOT (test code = BILITOT) 0.3 MG/DL 0.2-1.3 AST (test code = AST) 16 U/L 15-46 PHOSALK (test code = PHOSALK) 85 U/L 38-126 ALT (test code = ALT) 15 U/L 13-69 GFR (test code = GFR) 162 mL/min/1.73m2 A GFR of >90 mL/min/1.73m2 is considered normal. [id number] 09:00:00* Test Item Value Reference Range Interpretation Comme nts WBC (test code = WBC) 6.9 K/UL 3.5-10.9 RBC (test code = RBC) 4.73 M/UL 4.0-5.0 HGB (test code = HGB) 10.0 G/DL 11.5-15.5 L HCT (test code = HCT) 33.6 % 34-46 L MCV (test code = MCV) 71.0 FL 80-98 L MCH (test code = MCH) 21.1 PG 28-32 L MCHC (test code = MCHC) 29.8 G/DL 32.5-36.5 L RDW (test code = RDW) 19.3 % 11.5-14.5 H PLT (test code = PLT) 408 K/UL 150-450 MPV (test code = MPV) 9.5 FL 7.4-10.4 MANDIFF (test code = MANDIFF) NO SCAN (test code = SCAN) NO NEUT% (test code = NEUT%) 65.2 % 40-75 LYMPH% (test code = LYMPH%) 26.6 % 24-44 MONO% (test code = MONO%) 6.4 % 0-13 EOS% (test code = EOS%) 1.4 % 0-4 BASO % (test code = BASO%) 0.1 % 0-2 IG (test code = IG) 0 % 0-1 IG% (test code = IG%) 0.3 % 0-1 IG% = Metamyeloc ytes, Myelocytes, and Promyelocytes. (Immature neutrophils not including "bands".) > 3% IG indicates risk of sepsis NRBC% (test code = NRBC%) 0 /100 WBC ABS NEUT (test code = NEUT) 4.5 K/UL 1.2-7.2 ER SCREEN FOR HIV 12:33:00* Test Item Value Reference Range Interpretation Comme nts HIV 1/2 AB (test code = SCRN HIV) NONREACTIVE NONREACTIVE This test is us ed for SCREENING purposes only. All reactive results are prelimenary and confirmation results will follow. APTIMA GONORRHEA/[id number] 23:05:00* Test Item Value Reference Range Interpretation Comme nts CHLAMYDIA TRACHOMATIS, LOWELL (test code = GENPROCH) Negative Negative NEISSERIA GONORRHOEAE, LOWELL (test code = GENPROGC) Negative Negative Performed at: [address] [id number] [employer] Interpreter: Suzanne Grimm MD, Phone: [phone] [facility]/[id number] 14:10:00* Test Item Value Reference Range Interpretation Comme nts Report Text (test code = Report Text) [facility] 2018-05-09 1410 Report Text7 (test code = Report Text7) NO TRICHOMONAS SEEN Report Text8 (test code = Report Text8) NO YEAST SEEN Report Text9 (test code = Report Text9) [facility] 2018-05-09 1411 Report Text10 (test code = Report Text10) NO CLUE CELLS SEEN B-HCG, [id number] 13:18:00* Test Item Value Reference Range Interpretation Comme nts HCG (test code = HCG) [address] MIU/ML A value of less than or equal to </= 4.83 mIU/ml is considered NEGATIVE. A value between 4.84 mIU/ml and 24.99 mIU/ml is considered INDETERMINATE and should be repeated in 48 hours if necessary. A value of 25.0 mIU/ml or greater is considered POSITIVE. Updated: 10/23/2009 [id number] 13:04:00* Test Item Value Reference Range Interpretation Comme nts GLUCOSE (test code = URGLU) NEGATIVE MG/DL NEG-100 BILIRUBN (test code = URBILI) NEGATIVE NEGATIVE KETONE (test code = URKET) NEGATIVE MG/DL NEGATIVE BLOOD (test code = URBLD) NEGATIVE UR PH (test code = URPH) 7.5 5.0-7.5 PROTEIN (test code = URPRO) NEGATIVE MG/DL NEGATIVE NITRITES (test code = URNIT) NEGATIVE NEGATIVE UROBILINGEN (test code = URURO) 1.0 EU/DL 0.2-1.0 LEUKOCYT (test code = URLEU) NEGATIVE NEGATIVE UA COLOR (test code = UA COLOR) YELLOW YELLOW CLARITY (test code = CLARITY) TURBID CLEAR SP GRAV (test code = URSPGRAV) 1.022 1.000-1.025 UAMICRO (test code = UAMICRO) YES WBC (test code = URWBC) 2 /HPF 0-5 RBC (test code = URRBC) 1 /HPF 0-2 CASTS (test code = CAST) 8 /LPF 0-3 H UR EPI (test code = EPI) 86 /LPF BACTERIA (test code = BACTERIA) NEGATIVE NONE ABO/[id number] 13:04:00* Test Item Value Reference Range Interpretation Comme nts BLOOD TYPE (test code = TYPE) O Rh Positive US OB [id number] 12:57:00[address] [id number] IMAGING REPORTPatient Name: ANTONINO RICHARDS EDate of Service: [id number]: 18 Sex: F Order #: [id number] Room: ERSDOB : 2000 X-Ray Number: [id number] Record Number: [id number] Hospital Number: [id number] Physician: WILLY SHEARER TANOrdering Physician: Lashae TOVAR OB ultrasound 05/09/2018History: reportedly at 16 weeks 0 days by prior ultrasound,intermittent vaginal bleeding d0aeivDncdinugja: NoneA single, live, intrauterine is identified in variablepresentation. Fe lesly heart rate is 146 BPM. BPD is 2.7 cm, HC 9.8 cm, AC 9.2cm and FL 1.6 cm.Complete anatomical evaluation was not performed. movements werenoted.The cervix measures 3.3 cm in length. The placenta is in an anteriorlocation without previa and maturity is grade 0. Amniotic fluid index is15.3 cmwhich is within normal limits. Estimated weight is 114 g. Noclear acute hemorrhage.Impression:Single, live, intrauterine at 15 weeks 0 days gestation bytoday's exam. Estimated delivery date is 10/31/2018.No other acute process.Electronically Signed By: Julian Mccray M.D., 05/09/2018 12:55 PMLegally authenticated by COLLEEN SANTAMARIA 2018-05-09 12:55:[id number] 12:48:00 * Test Item Value Reference Range Interpretation Comme nts SODIUM (test code = NA) 136 MMOL/L 137-145 L K+ (test code = KSERUM) 3.8 MMOL/L 3.5-5.1 PLEASE NOTE NEW REFERENCE RANGE(S) IN EFFECT EFFECTIVE 01/20/2010 - NEW ANALYZER ([employer] 5600) CHLORIDE (test code = CL) 103 MMOL/L 98-107 CO2 (test code = CO2) 25 MMOL/L 22-30 BUN (test code = BUN) 6 MG/DL 7-17 L CREA (test code = CREA) 0.5 MG/DL 0.7-1.2 L GLUCOSE (test code = GLUCOSE) 73 MG/DL 70-99 Fasting glucos e normal <100 MG/DL- [employer] recommendation CALCIUM (test code = CABLOOD) 9.5 MG/DL 8.4-10.2 TOTPROT (test code = TOTPROT) 7.3 G/DL 6.3-8.2 ALBUMIN (test code = ALBSERUM) 4.0 G/DL 3.5-5.0 BILITOT (test code = BILITOT) 0.2 MG/DL 0.2-1.3 AST (test code = AST) 25 U/L 15-46 PHOSALK (test code = PHOSALK) 54 U/L 38-126 ALT (test code = ALT) 13 U/L 13-69 GFR (test code = GFR) 202 mL/min/1.73m2 A GFR of >90 mL/min/1.73m2 is considered normal. [id number] 12:24:00* Test Item Value Reference Range Interpretation Comme nts WBC (test code = WBC) 8.8 K/UL 3.5-10.9 RBC (test code = RBC) 3.90 M/UL 4.0-5.0 L HGB (test code = HGB) 10.9 G/DL 11.5-15.5 L HCT (test code = HCT) 31.5 % 34-46 L MCV (test code = MCV) 80.8 FL 80-98 MCH (test code = MCH) 27.9 PG 28-32 L MCHC (test code = MCHC) 34.6 G/DL 32.5-36.5 RDW (test code = RDW) 14.5 % 11.5-14.5 PLT (test code = PLT) 268 K/UL 150-450 MPV (test code = MPV) 9.6 FL 7.4-10.4 MANDIFF (test code = MANDIFF) NO SCAN (test code = SCAN) NO NEUT% (test code = NEUT%) 70.7 % 40-75 LYMPH% (test code = LYMPH%) 20.2 % 24-44 L MONO% (test code = MONO%) 6.7 % 0-13 EOS% (test code = EOS%) 1.7 % 0-4 BASO % (test code = BASO%) 0.2 % 0-2 IG (test code = IG) 0 % 0-1 IG% (test code = IG%) 0.5 % 0-1 IG% = Metamyeloc ytes, Myelocytes, and Promyelocytes. (Immature neutrophils not including "bands".) > 3% IG indicates risk of sepsis NRBC% (test code = NRBC%) 0 /100 WBC ABS NEUT (test code = NEUT) 6.2 K/UL 1.2-7.2 B-HCG QUAL (KIT)2018-01-22 01:10:00* Test Item Value Reference Range Interpretation Comme nts HCGQUAL (test code = HCGQUAL) NEGATIVE NEGATIVE URINE: NEGATIVE = < 20 mIU/ML; POSITIVE= >/= 20 mIU/ML SERUM: NEGATIVE = < 10 mIU/ML; POSITIVE= >/= 10 mIU/ML SOURCE (test code = SOURCE) URINE HCG INTERNAL POSITIVE CNTRL (test code = HCGIPC) PASS PASS HCG LOT # (test code = UHCGLOT) [id number] HCG EXPIRATION DATE (test code = UHCGEXP) 09-16-19 [id number] 01:08:00* Test Item Value Reference Range Interpretation Comme nts GLUCOSE (test code = URGLU) NEGATIVE MG/DL NEG-100 BILIRUBN (test code = URBILI) NEGATIVE NEGATIVE KETONE (test code = URKET) NEGATIVE MG/DL NEGATIVE BLOOD (test code = URBLD) NEGATIVE UR PH (test code = URPH) 5.5 5.0-7.5 PROTEIN (test code = URPRO) NEGATIVE MG/DL NEGATIVE NITRITES (test code = URNIT) NEGATIVE NEGATIVE UROBILINGEN (test code = URURO) 0.2 EU/DL 0.2-1.0 LEUKOCYT (test code = URLEU) NEGATIVE NEGATIVE UA COLOR (test code = UA COLOR) YELLOW YELLOW CLARITY (test code = CLARITY) CLEAR CLEAR SP GRAV (test code = URSPGRAV) >=1.030 1.000-1.025 H UAMICRO (test code = UAMICRO) NO Notes Date/Time Note Provider Source 2023-11-16 13:58:07 [id number]:58:07F ormatting of this note is different from the original.Chief ComplaintPatient presents withOTHERWeight loss managementVitals:11/16/23 1355BP: 100/66Side: Right ArmPosition: SITTINGCuff Size: Medium AdultPulse: 73Resp: 16Temp: 98.7 ?F (37.1 ?C)TempSrc: TympanicSpO2: 100%Weight: 191 lb (86.6 kg)Height: 5' 2" (1.575 m)No other voiced complaint at this time 03470-9Lapyd [id number]:58:52Nurse [id number] .[id number] for patient [id number] NoteLNNARRATIVEFormatted C-CDA narrative [address][id number]:58:521.2.840.1143 50.1.72.3.15|1.2.840.031006.1.13.1 [id number] [facility] 2023-10-30 14:18:59 [id number]:18:59F ormatting of this note is different from the original.Chief ComplaintPatient presents withOTHERWeight loss managementVitals:10/30/23 1413BP: 102/71Side: Right ArmPosition: SITTINGCuff Size: Medium AdultPulse: 92Resp: 18Temp: 99 ?F (37.2 ?C)TempSrc: TympanicSpO2: 99%Weight: 187 lb (84.8 kg)Height: 5' 2" (1.575 m)No other voiced complaints at this time 67823-7Bwkhe UtsaWB6411-24-58V49:20:07Nurse NoteTXT1.2.840.907250.1.13.131.2.7 .2.049920|[id number] for patient [id number] NoteLNNARRATIVEFormatted C-CDA narrative [address][id number]:20:071.2.840.1143 50.1.72.3.15|1.2.840.898856.1.13.1 [id number] [facility]
--- NOTE | 2023-12-06 17:41 | ER ---
Nurse's Notes [facility] Name: Mirian Mercado Age: 23 yrs Sex: Female : 2000 Arrival Date: 12/06/2023 Time: 17:10 Bed 13 Private MD: Diagnosis: Breast lump Presentation: 12/05 17:26 Chief complaint: Patient states: Bumps on bottom of breasts, painful, has had them nj1 since last year, has seen a PCP about a year ago. Over the last couple of weeks she has noticed they have grown in size and become more painful. Coronavirus screen: Vaccine status: Patient reports receiving the 2nd dose of the covid vaccine. Ebola Screen: Patient denies travel to an Ebola-affected area in the 21 days before illness onset. Initial Sepsis Screen: Does the patient meet any 2 criteria? No. Patient's initial sepsis screen is negative. Does the patient have a suspected source of infection? No. Patient's initial sepsis screen is negative. Risk Assessment: Do you want to hurt yourself or someone else? Patient reports no desire to harm self or others. Onset of symptoms was 2022. 17:26 Method Of Arrival: Ambulatory [facility] 17:26 Acuity: KODY 3 nj1 Triage Assessment: 17:31 General: Appears in no apparent distress. comfortable, Behavior is calm, cooperative, nj1 appropriate for age. Pain: Complains of pain in right breast and left breast Pain currently is 7 out of 10 on a pain scale. Neuro: Level of Consciousness is awake, alert, obeys commands, Oriented to person, place, time, situation. 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 - Infectious Disease History:: Denies. - Social history:: Smoking status: Patient denies any tobacco usage or history of. Screenin:38 [facility] ED Fall Risk Assessment (Adult) History of falling in the last 3 months, mb9 including since admission No falls in past 3 months (0 pts) Confusion or Disorientation No (0 pts) Intoxicated or Sedated No (0 pts) Impaired Gait No (0 pts) Mobility Assist Device Used No (0 pt) Altered Elimination No (0 pt) Score/Fall Risk Level 0 - 2 = Low Risk Oriented to surroundings, Maintained a safe environment, Educated pt \T\ family on fall prevention, incl call for assistance when getting out of bed. Abuse screen: Denies threats or abuse. Nutritional screening: No deficits noted. Tuberculosis screening: No symptoms or risk factors identified. Assessment: 17:37 General: Appears in no apparent distress. Pain: Complains of pain in left breast and mb9 right breast Quality of pain is described as throbbing, Pain began years ago. Neuro: Mckeon Agitation-Sedation Scale (RASS): 0 - Alert and Calm Level of Consciousness is awake, alert, obeys commands, Oriented to person, place, time, situation, Appropriate for age. Cardiovascular: Patient's skin is warm and dry. Respiratory: Airway is patent Respiratory effort is even, unlabored, Respiratory pattern is regular, symmetrical. GI: Bowel sounds present X 4 quads. Abd is soft and non tender X 4 quads. : No signs and/or symptoms were reported regarding the genitourinary system. EENT: No signs and/or symptoms were reported regarding the EENT system. Derm: bilateral lump under each breast. Tender to touch. Musculoskeletal: Range of motion: intact in all extremities. Vital Signs: 17:26 BP 116 / 77; Pulse 80; Resp 16; Temp 98.5(O); Pulse Ox 100% ; Weight 86.18 kg; Height 5 nj1 ft. 2 in. ; Pain 7/10; 17:26 Body Mass Index 34.75 (86.18 kg, 157.48 cm) nj1 17:26 Pain Scale: Adult nj1 ED Course: 17:14 Patient arrived in ED. rg4 17:14 Marc Harkins MD is Attending Physician. sp3 17:31 Triage completed. nj1 17:32 Gay Clark RN is Primary Nurse. mb9 17:32 Arm band placed on right wrist. nj1 17:38 Placed in gown. Bed in low position. Call light in reach. Side rails up X 1. Provided mb9 Education on: press call light if needing anything. Client placed on continuous cardiac and pulse oximetry monitoring. NIBP monitoring applied. 17:39 Assisted provider with: breast exam. Patient did not have IV access during this mb9 emergency room visit. Administered Medications: No medications were administered Medication: 17:38 VIS not applicable for this client. mb9 Outcome: 17:40 Discharge ordered by . sp3 17:45 Discharged to home ambulatory, mb9 17:45 Condition: stable 17:45 Discharge instructions given to patient, Instructed on discharge instructions, follow up and referral plans. Demonstrated understanding of instructions, follow-up care, 17:45 Patient left the ED. mb9 Signatures: Diaan Gibbs rg4 Mrac Harkins MD MD sp3 Gay Clark RN RN mb9 Renee Marks RN RN nj1
--- NOTE | 2023-12-06 17:41 | EDPHYS ---
Physician Documentation [facility] Name: Mirian Mercado Age: 23 yrs Sex: Female : 2000 Arrival Date: 12/06/2023 Time: 17:10 Bed 13 Private MD: ED Physician Marc Harkins HPI: 12/05 17:37 This 23 yrs old Black Female presents to ER via Ambulatory with complaints of Breast sp3 Lump. 17:37 43-year-old female with no past medical history presents with bilateral lower breast sp3 lumps that she states are off and on for 1 to 2 years. She is seeing her general practitioner who said that her mammogram was normal. It is unknown whether she had a screening or diagnostic mammogram. No ultrasound has been performed. Patient has an appointment with an OB for her general checkup in a few weeks. Patient has no weight loss, night sweats, bleeding, history of breast cancer in her family, or any other signs or symptoms on ROS at this time.. 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 - Infectious Disease History:: Denies. - Social history:: Smoking status: Patient denies any tobacco usage or history of. ROS: 17:38 Constitutional: Negative for fever, chills, and weight loss, Eyes: Negative for injury, sp3 pain, redness, and discharge, Neck: Negative for injury, pain, and swelling, Cardiovascular: Negative for chest pain, palpitations, and edema, Respiratory: Negative for shortness of breath, cough, wheezing, and pleuritic chest pain, Abdomen/GI: Negative for abdominal pain, nausea, vomiting, diarrhea, and constipation, Back: Negative for injury and pain, MS/Extremity: Negative for injury and deformity, Neuro: Negative for headache, weakness, numbness, tingling, and seizure, Psych: Negative for depression, anxiety, suicide ideation, homicidal ideation, and hallucinations, Allergy/Immunology: Negative for hives, rash, and allergies, Endocrine: Negative for neck swelling, polydipsia, polyuria, polyphagia, and marked weight changes, 17:38 All other systems are negative, Exam: 17:39 Constitutional: This is a well developed, well nourished patient who is awake, alert, sp3 and in no acute distress. Head/Face: Normocephalic, atraumatic. Neck: Trachea midline, no thyromegaly or masses palpated, and no cervical lymphadenopathy. Supple, full range of motion without nuchal rigidity, or vertebral point tenderness. No Meningismus. Cardiovascular: Regular rate and rhythm with a normal S1 and S2. No gallops, murmurs, or rubs. Normal PMI, no JVD. No pulse deficits. Respiratory: Lungs have equal breath sounds bilaterally, clear to auscultation and percussion. No rales, rhonchi or wheezes noted. No increased work of breathing, no retractions or nasal flaring. Abdomen/GI: Soft, non-tender, with normal bowel sounds. No distension or tympany. No guarding or rebound. No evidence of tenderness throughout. Back: No spinal tenderness. No costovertebral tenderness. Full range of motion. 17:39 Chest/axilla: Small 1 cm lumps noted mobile lower breast at 6 o'clock position bilaterally along bra line. No other breast abnormalities noted including tail of Nguyễn.. Vital Signs: 17:26 BP 116 / 77; Pulse 80; Resp 16; Temp 98.5(O); Pulse Ox 100% ; Weight 86.18 kg; Height 5 nj1 ft. 2 in. ; Pain 7/10; 17:26 Body Mass Index 34.75 (86.18 kg, 157.48 cm) nj1 17:26 Pain Scale: Adult nj1 MDM: 17:37 Patient medically screened. sp3 17:39 Data reviewed: vital signs, nurses notes. ED course: 23-year-old female with bilateral sp3 breast lumps off-and-on for greater than 1 year. Patient already has a [employer]CR[employer] follow-up appointment. I have advised patient that she needs a screening mammogram and potential ultrasound all ordered outpatient by her director of assisted living. Vital signs are normal. 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 Administered Medications: No medications were administered Disposition Summary: 12/06/23 17:40 Discharge Ordered Notes: Location: Home sp3 Condition: Stable sp3 Diagnosis - Breast lump sp3 Followup: sp3 - With: Private Physician - When: Upon discharge from the Emergency Department - Reason: Continuance of care Discharge Instructions: - Discharge Summary Sheet sp3 - Breast Self-Awareness sp3 Forms: - Medication Reconciliation Form sp3 - Antibiotic Education sp3 - Prescription Opioid Use sp3 - Patient Portal Instructions sp3 - Leadership Thank You Letter sp3 Signatures: Marc Harkins MD MD sp3 Gay Clark RN RN mb9 Renee Marks RN RN nj1
[2023-12-06 18:09] VITALS: BP 116/77; TEMP 98.5; O2SAT 100
== END 2023-12-06 17:45 | disposition home or self-care (01) ==
LOC: ER 17:10
DX: N63.0 Unspecified lump in unspecified breast (principal)
CPT/HCPCS: 99283